=== PATIENT | male | born 1990 | race Caucasian/White ===

== ENCOUNTER 2016-10-26 14:56 | Inpatient (IN) | payer OTHER ==
[2016-10-26 16:31] VITALS: BP 107/65; PULSE 115; TEMP 99.8; BMI 19.5
--- NOTE | 2016-10-26 18:58 | HP ---
Admission ROS [facility] - HPI Allergies/Adverse Reactions: Allergies Allergy/AdvReac Type Severity Reaction Status Date / Time Penicillins Allergy Verified 10/26/16 19:54 - Ebola screening Have you been sick,other than usual withdrawal symptoms: No Patient History - Smoking Cessation Smoking history: Smoker current status UNK Have you smoked in the past 12 months: No Hx Chewing Tobacco Use: No Initiated information on smoking cessation: No - Substances Abused Heroin Route: Injection Frequency: Daily Amount used: 10 bags Age of first use: 25 Date of Last Use: 10/26/16 Cocaine Route: Injection Frequency: Daily Amount used: 1/2 gram Age of first use: 25 Date of Last Use: 10/26/16 Admission Physical Exam [facility] - Vital Signs Vital Signs: Vital Signs - 24 hr 10/26/16 16:09 Temperature 99.8 F H Pulse Rate 115 H Respiratory 18 Rate Blood Pressure 107/65 Screened but not Admitted - Documentation of Visit Screened but not Admitted: Yes Left Prior to Completion of Assessment: No Insurance Authorization Denied: No Patient Does Not Meet Criteria for Admission: No Level of Care Recommended at this Time: ER Evaluation/Care Alternative Treatment/Long-Term Info Provided: No Additional Information/Explanation: 26 YEARS OLD MALE FIRST ADMISSION TO [facility] FOR OPIATE DETOX, RIGHT ELBOW PAIN, SWELL, IMMOBILE, DISTAL COOL, AMBULANCE WAS CALLED,MAY RETURN TO [facility] FOR OPIATE DETOX [facility] Breath Alcohol Content Breath Alcohol Content: 0 Urine Drug Screen - Control Is Test Valid: Yes - Results Drug Screen Negative: No Urine Drug Screen Results: SUNNY-Cocaine, OPI-Opiates, BZO-Benzodiazepines
== END 2016-10-26 23:00 | disposition short-term general hospital (02) | DRG 773 ==
LOC: YASAS 14:56 → Y6N 18:57
PROVIDERS: ADMIT Internal Medicine; ATTEND Internal Medicine
PROC: HZ2ZZZZ Detoxification Services for Substance Abuse Treatment (ICD-10-PCS; principal; 2016-10-26)
DX: F11.23 Opioid dependence with withdrawal (principal); F14.20 Cocaine dependence, uncomplicated; Z88.0 Allergy status to penicillin

== ENCOUNTER 2016-10-26 19:33 | Inpatient (IN) | payer OTHER ==
[2016-10-26] MEDS ORDERED: VANCOMYCIN 1,000 MG in DEXTROSE 5%-WATER - 250 ML IVPB ONE (20:38)
[2016-10-26] MEDS ORDERED: LEVOFLOXACIN 500 MG IVPB 100 ML IVPB ONE ×2 (20:38→21:24)
[2016-10-26] MEDS ORDERED: SODIUM CHLORIDE 1,000 ML IV STA (20:39)
--- NOTE | 2016-10-26 20:40 | PDOC ---
History of Present Illness - General History Source: Patient Exam Limitations: No Limitations - History of Present Illness Initial Comments: The patient is a 26 yo M with a past medical history significant for Cellulitis of L arm s/p IV antibiotics a few months ago who presents with R arm pain s/p illicit drug injection at 11 am. The patient states the pain started a few hours after he injected both heroin and cocaine into his R arm. The patient describes the pain as sharp and throbbing rated 7/10. The patient also notes his buttocks started hurting around the same time as his R arm. The patient denies diaphoresis, nausea, vomiting, diarrhea and abdominal pain. The patient denies chest pain, palpitations and lightheadedness. The patient endorses mild fevers but denies subjective chills. Allergies: penicillin (hives) <Smooth Rider - Last Filed: 10/26/16 20:42> - General History Source: Patient, Old Records Exam Limitations: No Limitations <Néstor Perez - Last Filed: 10/26/16 23:20> - General Chief Complaint: Edema Stated Complaint: Edema Time Seen by Provider: 10/26/16 20:08 Past History <Smooth Rider - Last Filed: 10/26/16 20:42> - Past Medical History Asthma: No Cardiac Disorders: No COPD: No Diabetes: No GI Disorders: No Disorders: No HTN: No Kidney Stones: No Suicide Attempt (Hx): No Seizures: No Other medical history: Pt denies - Surgical History Abdominal Surgery: No Appendectomy: No Cardiac Surgery: No Cholecystectomy: No Lung Surgery: No Neurologic Surgery: No Orthopedic Surgery: No - Reproductive History Testicular Surgery: No - Psycho/Social/Smoking Cessation Hx Anxiety: No Suicidal Ideation: No Smoking History: Unknown if ever smoked Have you smoked in the past 12 months: No Information on smoking cessation initiated: No Hx Alcohol Use: No Drug/Substance Use Hx: Yes (heroine) Substance Use Type: None Hx Substance Use Treatment: No <Néstor Perez - Last Filed: 10/26/16 23:20> - Past Medical History Allergies/Adverse Reactions: Allergies Allergy/AdvReac Type Severity Reaction Status Date / Time Penicillins Allergy Verified 10/26/16 19:54 Home Medications: Ambulatory Orders NK [No Known Home Medication] 10/26/16 Review of Systems - Review of Systems Able to Perform ROS?: Yes Comments:: GENERAL/CONSTITUTIONAL: +fever No chills. No weakness. HEAD, EYES, EARS, NOSE AND THROAT: No change in vision. No ear pain or discharge. No sore throat. CARDIOVASCULAR: No chest pain or shortness of breath. RESPIRATORY: No cough, wheezing, or hemoptysis. GASTROINTESTINAL: No nausea, vomiting, diarrhea or constipation. GENITOURINARY: No dysuria, frequency, or change in urination. MUSCULOSKELETAL: No neck or back pain. SKIN: +RUE redness and pain. +Buttocks redness and pain. NEUROLOGIC: No headache, vertigo, loss of consciousness, or change in strength/ sensation. ALLERGIC/IMMUNOLOGIC: No hives or skin allergy. <Smooth Rider - Last Filed: 10/26/16 20:42> *Physical Exam - Vital Signs Last Vital Signs Temp Pulse Resp BP Pulse Ox 98.4 F 111 H 18 157/70 99 10/26/16 19:55 10/26/16 19:55 10/26/16 19:55 10/26/16 19:55 10/26/16 19:55 - Physical Exam Comments: GENERAL: Awake, alert, and fully oriented, in no acute distress HEAD: No signs of trauma EYES: PERRLA, EOMI, sclera anicteric, conjunctiva clear ENT: Auricles normal inspection, hearing grossly normal, nares patent, oropharynx clear without exudates. Moist mucosa NECK: Normal ROM, supple, no lymphadenopathy, JVD, or masses LUNGS: Breath sounds equal, clear to auscultation bilaterally. No wheezes, and no crackles HEART: Regular rate and rhythm, normal S1 and S2, no murmurs, rubs or gallops ABDOMEN: Soft, nontender, normoactive bowel sounds. No guarding, no rebound. No masses EXTREMITIES: Normal range of motion, no edema. No clubbing or cyanosis. No cords, erythema, or tenderness NEUROLOGICAL: Cranial nerves II through XII grossly intact. Normal speech, normal gait SKIN: Warm, Dry, normal turgor. Multiple track carroll on UE bilaterally. RUE 6 by 8 cm erythema and indurated rash on flexure of his R elbow. RUE tender to palpation. R superior medial buttocks 6 by 8 erythematous and indurated rash that is tender to palpation. <Smooth Rider - Last Filed: 10/26/16 20:42> - Vital Signs Last Vital Signs Temp Pulse Resp BP Pulse Ox 98.4 F 111 H 18 157/70 99 10/26/16 19:55 10/26/16 19:55 10/26/16 19:55 10/26/16 19:55 10/26/16 19:55 <Néstor Perez - Last Filed: 10/26/16 23:20> Heart Score/ECG Review #1 ECG reviewed & interpreted by me at: 22:20 10/26/16 22:26 NSR 99, incomplete RBBB, QTC 485 msec, no std/laura, TWI V2 <Néstor Perez - Last Filed: 10/26/16 23:20> ED Treatment Course - LABORATORY CBC & Chemistry Diagram: 10/26/16 20:50 10/26/16 20:50 - RADIOLOGY Radiology Studies Ordered: Category Date Time Status CHEST X-RAY PORTABLE* [RAD] Stat Radiology 10/26/16 20:34 Ordered <Néstor Perez - Last Filed: 10/26/16 23:20> Medical Decision Making - Medical Decision Making 10/26/16 21:43 A portion of this note was documented by scribe services under my direction. I have reviewed the details of the note, within reason, and agree with the documentation with the following case summary and management plan written by me. Patient treated in the ED. Nursing notes are reviewed and incorporated into the medical decision-making. Vital signs reviewed. Peripheral IV access obtained by the nurse, laboratory studies are drawn and sent, reviewed and interpreted by myself. Vital Signs Temp Pulse Resp BP Pulse Ox 98.4 F 111 H 18 157/70 99 10/26/16 19:55 10/26/16 19:55 10/26/16 19:55 10/26/16 19:55 10/26/16 19:55 26-year-old male with past medical history of IV drug abuse, prior cellulitis in his left fracture of the elbow from prior injection presents with right elbow cellulitis. The patient last injected heroin and cocaine this morning approximately 11 AM. Went to [address] [place] [address] for detox but patient was referred to the ER for tactile fevers and erythema, cellulitisof the right elbow. He also noticed today that he is developing erythema of the buttocks region as well. Denies chest pain or shortness of breath but endorses tactile fevers. The patient most really has diffuse cellulitis. Also appears less invasive his buttocks. This is potentially concerning for endocarditis though he has no murmur. Adult sepsis protocol initiated including 3 sets of blood cultures. Empiric vancomycin and Levaquin was ordered. Patient should be admitted to the hospital for further evaluation. 10/26/16 23:18 CBC, BMP 10/26/16 20:50 10/26/16 20:50 CMP Sodium 129 mmol/L (136-145) L 10/26/16 20:50 Potassium 3.8 mmol/L (3.5-5.1) 10/26/16 20:50 Chloride 93 mmol/L (98-107) L 10/26/16 20:50 Carbon Dioxide 25 mmol/L (21-32) 10/26/16 20:50 Anion Gap 11 (8-16) 10/26/16 20:50 BUN 16 mg/dL (7-18) 10/26/16 20:50 Creatinine 1.1 mg/dL (0.7-1.3) 10/26/16 20:50 Creat Clearance w eGFR > 60 (>60) 10/26/16 20:50 Random Glucose 104 mg/dL (74-106) 10/26/16 20:50 Lactic Acid 1.9 mmol/L (0.4-2.0) 10/26/16 21:00 Calcium 8.8 mg/dL (8.5-10.1) 10/26/16 20:50 Total Bilirubin 1.1 mg/dL (0.2-1.0) H 10/26/16 20:50 AST 72 U/L (15-37) H 10/26/16 20:50 ALT 53 U/L (12-78) 10/26/16 20:50 Alkaline Phosphatase 97 U/L (45-117) 10/26/16 20:50 Creatine Kinase 1920 IU/L (39-308) H 10/26/16 20:50 Creatine Kinase Index 0.3 % (0.0-5.0) 10/26/16 20:50 CK-MB (CK-2) 6.447 ng/mL (0.5-3.6) H 10/26/16 20:50 Troponin I < 0.02 ng/ml (0.00-0.05) 10/26/16 20:50 Total Protein 9.0 g/dl (6.4-8.2) H 10/26/16 20:50 Albumin 4.6 g/dl (3.4-5.0) 10/26/16 20:50 Chest xray reviewed, pending official radiology read. No infiltrates. [facility]. Case discussed in detail with admitting physician including history, physical exam and ancillary studies. Admitting physician has assumed care for the patient, will follow all pending diagnostics and will complete the evaluation and treatment. <Néstor Perez - Last Filed: 10/26/16 23:20> *DC/Admit/Observation/Transfer - Attestations Scribe Attestion: Documentation prepared by Smooth Ridre, acting as medical librarian for Néstor Perez MD, /DO. <Smooth Rider - Last Filed: 10/26/16 20:42> - Discharge Dispostion Admit: Yes <Néstor Perez - Last Filed: 10/26/16 23:20> Diagnosis at time of Disposition: Cellulitis Qualifiers: Site of cellulitis: other site Qualified Code(s): L03.818 - Cellulitis of other sites - Discharge Dispostion Condition at time of disposition: Stable - Referrals Referrals: Juan Pollock MD [Primary Care Provider] -
[2016-10-26] MEDS ORDERED: VANCOMYCIN 1 GRAM (PRE-DOCKED) 250 ML IVPB ONE (21:24)
[2016-10-26 21:33] LABS: BASOPHIL 0.3 % (0-2.0); MCH 26.9 pg (25.7-33.7); MCHC 33.5 g/dl (32.0-35.9); MEAN CELL VOLUME 80.4 fl (80-96); NEUTROPHILS 80.1 % (42.8-82.8); PLATELET COUNT 163 K/MM3 (134-434); WHITE BLOOD COUNT 6.6 K/mm3 (4.0-10.0)
[2016-10-26 21:48] LABS: INR 1.23 (0.82-1.09); PROTHROMBIN TIME (PATIENT) 13.6 SEC (9.98-11.88)
[2016-10-26 21:51] LABS: ACTIVATED PTT 23.4 SECONDS (26.9-34.4)
[2016-10-26 22:01] LABS: ALBUMIN 4.6 g/dl (3.4-5.0); ANION GAP 11 (8-16); CALCIUM 8.8 mg/dL (8.5-10.1); CO2 25 mmol/L (21-32); CREATININE 1.1 mg/dL (0.7-1.3); GLUCOSE,RANDOM 104 mg/dL (74-106); SGOT/AST 72 U/L (15-37); SGPT/ALT 53 U/L (12-78)
[2016-10-26 22:14] LABS: ALK PHOS 97 U/L (45-117); BILIRUBIN,TOTAL 1.1 mg/dL (0.2-1.0); TROPONIN I < 0.02 ng/ml (0.00-0.05)
[2016-10-26 22:17] LABS: CPK 1920 IU/L (39-308)
[2016-10-26 22:46] LABS: URINE APPEARANCE SLCLOUDY; URINE BILIRUBIN NEGATIVE (NEGATIVE); URINE BLOOD 2+ (NEGATIVE); URINE COLOR YELLOW; URINE GLUCOSE (UA) NEGATIVE (NEGATIVE); URINE KETONE 2+ (NEGATIVE); URINE LEUK ESTERASE NEGATIVE (NEGATIVE); URINE NITRITE NEGATIVE (NEGATIVE); URINE UROBILINOGEN NEGATIVE mg/dL (0.2-1.0)
[2016-10-26 22:55] LABS: URINE MARIJUANA THC NEGATIVE ng/ml (CUTOFF=50)
[2016-10-26 23:22] LABS: URINE PROTEIN 1+ (NEGATIVE)
[2016-10-26 23:23] LABS: URINE MUCUS FEW; URINE RBC <1 /hpf (0-3); URINE WBC 1 /hpf (3-5)
[2016-10-27 00:55] VITALS: BMI 25.9
--- NOTE | 2016-10-27 01:27 | HP ---
CHIEF COMPLAINT: R-arm pain/swelling PCP: HISTORY OF PRESENT ILLNESS: This is a 26 y/o male with a past medical history of IVDU- Heroin, Polysubstance Abuse (Cocaine/Opiates). Who presents to the ED with pain, redness to right antecubital fossa. patient reports using daily Heroin 10 bags and self injecting into his arms. Patient reports being treated for L- Cellulitis and was on abx 3 weeks ago. Patient denies fever, chills, cough, SOB , CP, AP, N/V/D, constipation, dysuria. ER course was notable for: (1) T Max 104.2 (2) Na 129 (3) CK 1920 Recent Travel: None PAST MEDICAL HISTORY: IVDU Polysubstance Abuse PAST SURGICAL HISTORY: Denies Social History: Smoking: Denies Alcohol: Denies Drugs: Heroin/Cocaine/Opiates Family History: Non Contributory Allergies Penicillins Allergy (Verified 10/26/16 19:54) HOME MEDICATIONS: Home Medications Medication Instructions Recorded NK [No Known Home Medication] 10/26/16 REVIEW OF SYSTEMS CONSTITUTIONAL: Absent: fever, chills, diaphoresis, generalized weakness, malaise, loss of appetite, weight change HEENT: Absent: rhinorrhea, nasal congestion, throat pain, throat swelling, difficulty swallowing, mouth swelling, ear pain, eye pain, visual changes CARDIOVASCULAR: Absent: chest pain, syncope, palpitations, irregular heart rate, lightheadedness , peripheral edema RESPIRATORY: Absent: cough, shortness of breath, dyspnea with exertion, orthopnea, wheezing, stridor, hemoptysis GASTROINTESTINAL: Absent: abdominal pain, abdominal distension, nausea, vomiting, diarrhea, constipation, melena, hematochezia GENITOURINARY: Absent: dysuria, frequency, urgency, hesitancy, hematuria, flank pain, genital pain MUSCULOSKELETAL: right arm pain/swelling Absent: myalgia, arthralgia, joint swelling, back pain, neck pain SKIN: erytherma, pus Absent: rash, itching, pallor HEMATOLOGIC/IMMUNOLOGIC: Absent: easy bleeding, easy bruising, lymphadenopathy, frequent infections ENDOCRINE: Absent: unexplained weight gain, unexplained weight loss, heat intolerance, cold intolerance NEUROLOGIC: Absent: headache, focal weakness or paresthesias, dizziness, unsteady gait, seizure, mental status changes, bladder or bowel incontinence PSYCHIATRIC: Absent: anxiety, depression, suicidal or homicidal ideation, hallucinations. PHYSICAL EXAMINATION Vital Signs - 24 hr 10/27/16 10/27/16 00:28 01:00 Temperature 98.3 F 104.2 F H Pulse Rate 102 H Pulse Rate [ 82 Left Radial] Respiratory 20 18 Rate Blood Pressure 120/72 Blood Pressure 130/80 [Left Arm] GENERAL: Thin, awake, alert, and fully oriented, in no acute distress. HEAD: Normal with no signs of trauma. EYES: Pupils equal, round and reactive to light, extraocular movements intact, sclera anicteric, conjunctiva clear. No lid lag. EARS, NOSE, THROAT: Ears normal, nares patent, oropharynx clear without exudates. Dry mucous membranes. NECK: Normal range of motion, supple without lymphadenopathy, JVD, or masses. LUNGS: Breath sounds equal, clear to auscultation bilaterally. No wheezes, and no crackles. No accessory muscle use. HEART: Sinus Tachycardia, normal S1 and S2 without murmur, rub or gallop. ABDOMEN: Soft, nontender, not distended, normoactive bowel sounds, no guarding, no rebound, no masses. No hepatomegaly or splenomegaly. MUSCULOSKELETAL: Normal range of motion at all joints. No bony deformities or tenderness. No CVA tenderness. UPPER EXTREMITIES: 2+ pulses, warm, well-perfused. No cyanosis. No clubbing. No peripheral edema. LOWER EXTREMITIES: 2+ pulses, warm, well-perfused. No calf tenderness. No peripheral edema. NEUROLOGICAL: Cranial nerves II-XII intact. Normal speech. Gait not observed. PSYCHIATRIC: Cooperative. Good eye contact. Appropriate mood and affect. SKIN: Warm, dry, normal turgor, normal capillary refill. +erythematous, indurated, fluctuant abscess to right antecubital fossa- right upper arm/ distal forearm noted Laboratory Results - last 24 hr 10/26/16 10/26/16 10/26/16 20:50 20:50 20:50 WBC 6.6 RBC 5.19 Hgb 14.0 Hct 41.7 MCV 80.4 MCH 26.9 MCHC 33.5 RDW 15.0 Plt Count 163 MPV 7.0 L Neutrophils % 80.1 Lymphocytes % 12.1 Monocytes % 7.5 Eosinophils % 0.0 Basophils % 0.3 INR 1.23 H PTT (Actin FS) 23.4 L Sodium 129 L Potassium 3.8 Chloride 93 L Carbon Dioxide 25 Anion Gap 11 BUN 16 Creatinine 1.1 Creat Clearance w eGFR > 60 Random Glucose 104 Lactic Acid Calcium 8.8 Total Bilirubin 1.1 H AST 72 H ALT 53 Alkaline Phosphatase 97 Creatine Kinase 1920 H Creatine Kinase Index 0.3 CK-MB (CK-2) 6.447 H Troponin I < 0.02 Total Protein 9.0 H Albumin 4.6 Urine Color Urine Appearance Urine pH Urine Protein Urine Glucose (UA) Urine Ketones Urine Blood Urine Nitrite Urine Bilirubin Urine Urobilinogen Ur Leukocyte Esterase Urine RBC Urine WBC Urine Mucus Opiates Screen Methadone Screen Barbiturate Screen Phencyclidine Screen Ur Amphetamines Screen MDMA (Ecstasy) Screen Benzodiazepines Screen Cocaine Screen U Marijuana (THC) Screen Blood Type Antibody Screen 10/26/16 10/26/16 10/26/16 20:50 21:00 22:25 WBC RBC Hgb Hct MCV MCH MCHC RDW Plt Count MPV Neutrophils % Lymphocytes % Monocytes % Eosinophils % Basophils % INR PTT (Actin FS) Sodium Potassium Chloride Carbon Dioxide Anion Gap BUN Creatinine Creat Clearance w eGFR Random Glucose Lactic Acid 1.9 Calcium Total Bilirubin AST ALT Alkaline Phosphatase Creatine Kinase Creatine Kinase Index CK-MB (CK-2) Troponin I Total Protein Albumin Urine Color Yellow Urine Appearance Slcloudy Urine pH 5.0 Urine Protein 1+ H Urine Glucose (UA) Negative Urine Ketones 2+ H Urine Blood 2+ H Urine Nitrite Negative Urine Bilirubin Negative Urine Urobilinogen Negative Ur Leukocyte Esterase Negative Urine RBC <1 Urine WBC 1 Urine Mucus Few Opiates Screen Methadone Screen Barbiturate Screen Phencyclidine Screen Ur Amphetamines Screen MDMA (Ecstasy) Screen Benzodiazepines Screen Cocaine Screen U Marijuana (THC) Screen Blood Type O POSITIVE Antibody Screen Negative 10/26/16 22:25 WBC RBC Hgb Hct MCV MCH MCHC RDW Plt Count MPV Neutrophils % Lymphocytes % Monocytes % Eosinophils % Basophils % INR PTT (Actin FS) Sodium Potassium Chloride Carbon Dioxide Anion Gap BUN Creatinine Creat Clearance w eGFR Random Glucose Lactic Acid Calcium Total Bilirubin AST ALT Alkaline Phosphatase Creatine Kinase Creatine Kinase Index CK-MB (CK-2) Troponin I Total Protein Albumin Urine Color Urine Appearance Urine pH Urine Protein Urine Glucose (UA) Urine Ketones Urine Blood Urine Nitrite Urine Bilirubin Urine Urobilinogen Ur Leukocyte Esterase Urine RBC Urine WBC Urine Mucus Opiates Screen Positive Methadone Screen Negative Barbiturate Screen Negative Phencyclidine Screen Negative Ur Amphetamines Screen Negative MDMA (Ecstasy) Screen Negative Benzodiazepines Screen Positive Cocaine Screen Positive U Marijuana (THC) Screen Negative Blood Type Antibody Screen ASSESSMENT/PLAN: This is a 26 y/o male with a PMHx of IVDU (Heroin), Polysubstance Abuse (Cocaine /Opiates). Admitted for Cellulitis R- Arm for further evaluation of their emergent condition. Problem List - Problem (1) Cellulitis Assessment/Plan: - Likely secondary to IVDU - Blood Cultures-pending - No leukocytosis, LA wnl, likely secondary to recent use of abx for LUE Cellulitis - Vancomycin/Levofloxacin started in the ED - Will continue Vancomycin - Appreciate ID consult - Tylenol prn - Monitor vitals - Repeat CBC, BMP in am - Elevate extremity - Xray r- elbow/humerus today r/o osteomyelitis Code(s): L03.90 - CELLULITIS, UNSPECIFIED Qualifiers: Site of cellulitis: other site Qualified Code(s): L03.818 - Cellulitis of other sites (2) Hyponatremia Assessment/Plan: - Likely secondary to Drug Binging vs Dehydration vs SIADH - NS bolus given in ED, patient appears euvolemic - Repeat BMP in am - Urine Osmalarity,Urine sodium - Fluid Restriction 1L Code(s): E87.1 - HYPO-OSMOLALITY AND HYPONATREMIA (3) Endocarditis, suspected Assessment/Plan: - Secondary to IVDU - [place] Criteria- 2 Minor Criteria - Echo in am - Chest Xray reviewed - EKG - Monitor vitals Code(s): Z03.89 - ENCNTR FOR OBS FOR OTH SUSPECTED DISEASES AND COND RULED OUT (4) Heroin abuse Assessment/Plan: - CIWA-Ar Scale 0 - Appreciate Detox Consult - Consider Clonidine Patch for withdrawal - Methadone once approved by Detox Specialist - Will try to avoid Benzos secondary to UTOX results - Monitor vitals - Seizure Precautions Code(s): F11.10 - OPIOID ABUSE, UNCOMPLICATED (5) Cocaine abuse Assessment/Plan: - Counseled Cocaine cessation - Appreciate Detox Consult - No Beta Blockers Code(s): F14.10 - COCAINE ABUSE, UNCOMPLICATED (6) Opiate abuse, continuous Assessment/Plan: - Patient counseled Opiate Cessation - Appreciate Detox Consult - Monitor Vitals Code(s): F11.10 - OPIOID ABUSE, UNCOMPLICATED (7) DVT prophylaxis Assessment/Plan: - OOB - SCDs Code(s): [id number] - Visit type - Emergency Visit Emergency Visit: Yes ED Registration Date: 10/26/16 Care time: The patient presented to the Emergency Department on the above date and was hospitalized for further evaluation of their emergent condition. - New Patient This patient is new to me today: Yes Date on this admission: 10/27/16 - Critical Care Critical Care patient: No
[2016-10-27] MEDS: ACETAMINOPHEN 325 MG TABLET (FP) PO PRN ×3 (01:40→21:35)
[2016-10-27] MEDS ORDERED: DEXTROSE 5%-0.45% SALINE 1,000 ML IV SCH (07:00)
[2016-10-27] MEDS: SODIUM CHLORIDE 1,000 ML IV SCH ×2 (09:41→21:11)
[2016-10-27] MEDS ORDERED: VANCOMYCIN 1,000 MG in DEXTROSE 5%-WATER - 250 ML IVPB SCH (10:00)
--- NOTE | 2016-10-27 10:04 | CONSULT ---
Consult Consult Specialty:: INFECTIOUS DISEASE - History of Present Illness Chief Complaint: Right arm tenderness/erythema History of Present Illness: Asked to evaluate this 26 y.o. male with history of IVDU who presents with c/o Rt arm pain and edema and erythema that began yesterday. He states he had recently injected heroin and cocaine into that arm. He was seen in the ER and noted to have a fever of 104.2F and erythematous Rt arm extending from forearm to upper arm with induration/purulence near anticubital fossa regions. He is currently without any other complaints other than pain 07/18. 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: Alzheimer's, CVA, Dementia, Migraine, Multiple Sclerosis, Peripheral Neuropathy, Parkinson's, Seizure, Syncope, TIA, Vertigo, Other Cardio/Vascular: No: AFIB, Aneurysm, Aortic Insufficiency, Aortic Stenosis, CAD , CHF, Deep Vein Thrombosis, HTN, Hyperlipdemia, RI, Mitral Insufficiency, Mitral Stenosis, Murmur, Pulmonary Hypertension, Other Pulmonary: No: Asthma, Bronchitis, Cancer, COPD, O2 Dependent, Pneumonia, Previously Intubated, Pulmonary Embolus, Pulmonary Fibrosis, Sleep Apnea, Other Gastrointestinal: No: Ascites, Cancer, Constipation, Crohn's Disease, Diverticulitis, Diverticulosis, Esophageal Varices, Gastritis, GERD, GI Bleed, Hemorrhoids, Hiatal Hernia, Inflamatory Bowel Disease, Irritable Bowel Disease, Pancreatitis, Peptic Ulcer Disease, Ulcerative Colitis, Other Hepatobiliary: No: Cirrhosis, Cholelithiasis, Cholecystitis, Choledocholithiasis , Hepatitis A, Hepatitis B, Hepatitis C, Other Renal/: No: Renal Failure, Renal Inusuff, BPH, Cancer, Hematuria, Hemodialysis , Neurogenic Bladder, Renal Calculi, UTI, Other Heme/Onc: No: Anemia, B12 Deficiency, Bleeding Disorder, Cancer, Current Chemotherapy, Current Radiation Therapy, Hemochromatosis, Hypercoaguable State, Myeloproliferative Synd, Sickle Cell Disease, Sickle Cell Trait, Thrombocytopenia, Other Infectious Disease: Yes: Other (Left arm cellulitis ) Psych: No: Addictions, Anxiety, Bipolar, Depression, Panic, Psychosis, Schizophrenia, Other Musculoskeletal: No: Bursitis, Chronic low back pain, Hemiparesis, Hemiplegia, Osteoarthritis, Paraplegia, Other Rheumatology: No: Fibromyalgia, Gout, Lupus, Rheumatoid Arthritis, Sarcoidosis, Vasculitis, Other ENT: No: Allergic Rhinitis, Sinusitis, Other Endocrine: No: [place]'s Disease, [place]'s Disease, Diabetes Insipidus, Diabetes Mellitus, Hyperparathyroidism, Hyperthyroidism, Hypothyroidism, Osteopenia, SIADH, Other Dermatology: Yes: Cellulitis (Lt arm ) - Past Surgical History Past Surgical History: No: None, AAA Repair, AICD, Amputation, Appendectomy, Arthrosocopy, AV Fistula/Graft, Bariatric Surgery, Breast Biopsy, Bypass, CABG, Carotid Endarterectomy, Cataract Removal, Cholecystectomy, Colectomy, Colonoscopy, Colostomy, Craniotomy, , Cystectomy, Hernia Repair, Hysterectomy, Ileal Conduit, Ileosotomy, Joint Replacement, Kidney Transplant, Laminectomy, Liver Transplant, Mastectomy, Nephrectomy, Oopherectomy, Orchiectomy, Permanent Pacemaker, Prostatectomy, Splenectomy, Stent, Thoracotomy , TURP, Tonsillectomy, Tubal Ligation, Upper Endoscopy, Valve Replacement, Vasectomy, Vein Stripping/Ligation - Alcohol/Substance Use Hx Alcohol Use: No History of Substance Use: reports: Cocaine, Heroin - Smoking History Smoking history: Never smoked Have you smoked in the past 12 months: No - Social History Usual Living Arrangement: With Parent History of Recent Travel: No Home Medications - Allergies Allergies/Adverse Reactions: Allergies Allergy/AdvReac Type Severity Reaction Status Date / Time Penicillins Allergy Verified 10/26/16 19:54 - Home Medications Home Medications: Ambulatory Orders NK [No Known Home Medication] 10/26/16 Family Disease History - Family Disease History Family History: Denies Review of Systems - Review of Systems Constitutional: reports: Fever Eyes: reports: No Symptoms HENT: reports: No Symptoms Neck: reports: No Symptoms Cardiovascular: reports: No Symptoms Respiratory: reports: No Symptoms Gastrointestinal: reports: No Symptoms Genitourinary: reports: No Symptoms Musculoskeletal: reports: No Symptoms Integumentary: reports: Erythema (RUE), Other (RUE edema) Neurological: reports: No Symptoms Endocrine: reports: No Symptoms Hematology/Lymphatic: reports: No Symptoms Psychiatric: reports: No Symptoms Pain Intensity: 5 Physical Exam Vital Signs: Vital Signs Temperature 102.6 F H 10/27/16 08:54 Pulse Rate 120 H 10/27/16 08:54 Respiratory Rate 16 10/27/16 08:54 Blood Pressure 104/58 10/27/16 08:54 O2 Sat by Pulse Oximetry (%) 96 10/27/16 00:02 Constitutional: Yes: No Distress Eyes: Yes: WNL HENT: Yes: WNL Neck: Yes: WNL Cardiovascular: Yes: WNL, Regular Rate and Rhythm Respiratory: Yes: WNL, CTA Bilaterally Gastrointestinal: Yes: Normal Bowel Sounds, Soft Renal/: Yes: WNL Extremities: Yes: Erythema, Other (Rt arm tenderness, Induration with central scab right below Rt anticubital fossa) Edema: Yes Edema: RUE: 2+ Peripheral Pulses WNL: Yes Integumentary: Yes: Erythema Imaging - Results Chest X-ray: Report Reviewed Problem List - Problems (1) Cellulitis Code(s): L03.90 - CELLULITIS, UNSPECIFIED Qualifiers: Site of cellulitis: extremity Site of cellulitis of extremity: upper extremity Laterality: right Qualified Code(s): L03.113 - Cellulitis of right upper limb (2) Cocaine abuse Code(s): F14.10 - COCAINE ABUSE, UNCOMPLICATED (3) Heroin abuse Code(s): F11.10 - OPIOID ABUSE, UNCOMPLICATED Assessment/Plan Continue Vancomycin IV , trough level prior to 4th dose 2D echocardiogram follow up blood culture results monitor CK results Xray of elbow monitor vitals Labs Lab Results: CBC, BMP 10/26/16 20:50 10/26/16 20:50 Abnormal Lab Results 10/26/16 10/26/16 10/26/16 20:50 20:50 20:50 MPV 7.0 L INR 1.23 H PTT (Actin FS) 23.4 L Sodium 129 L Chloride 93 L Total Bilirubin 1.1 H AST 72 H Creatine Kinase 1920 H CK-MB (CK-2) 6.447 H Total Protein 9.0 H Urine Protein Urine Ketones Urine Blood 10/26/16 22:25 MPV INR PTT (Actin FS) Sodium Chloride Total Bilirubin AST Creatine Kinase CK-MB (CK-2) Total Protein Urine Protein 1+ H Urine Ketones 2+ H Urine Blood 2+ H Laboratory Tests 10/26/16 10/26/16 10/26/16 20:50 20:50 20:50 WBC 6.6 RBC 5.19 Hgb 14.0 Hct 41.7 MCV 80.4 MCH 26.9 MCHC 33.5 RDW 15.0 Plt Count 163 MPV 7.0 L Neutrophils % 80.1 Lymphocytes % 12.1 Monocytes % 7.5 Eosinophils % 0.0 Basophils % 0.3 INR 1.23 H PTT (Actin FS) 23.4 L Sodium 129 L Potassium 3.8 Chloride 93 L Carbon Dioxide 25 Anion Gap 11 BUN 16 Creatinine 1.1 Creat Clearance w eGFR > 60 Random Glucose 104 Lactic Acid Calcium 8.8 Total Bilirubin 1.1 H AST 72 H ALT 53 Alkaline Phosphatase 97 Creatine Kinase 1920 H Creatine Kinase Index 0.3 CK-MB (CK-2) 6.447 H Troponin I < 0.02 Total Protein 9.0 H Albumin 4.6 Urine Color Urine Appearance Urine pH Ur Specific [place] Urine Protein Urine Glucose (UA) Urine Ketones Urine Blood Urine Nitrite Urine Bilirubin Urine Urobilinogen Ur Leukocyte Esterase Urine RBC Urine WBC Urine Mucus Opiates Screen Methadone Screen Barbiturate Screen Phencyclidine Screen Ur Amphetamines Screen MDMA (Ecstasy) Screen Benzodiazepines Screen Cocaine Screen U Marijuana (THC) Screen Blood Type Antibody Screen 10/26/16 10/26/16 10/26/16 20:50 21:00 22:25 WBC RBC Hgb Hct MCV MCH MCHC RDW Plt Count MPV Neutrophils % Lymphocytes % Monocytes % Eosinophils % Basophils % INR PTT (Actin FS) Sodium Potassium Chloride Carbon Dioxide Anion Gap BUN Creatinine Creat Clearance w eGFR Random Glucose Lactic Acid 1.9 Calcium Total Bilirubin AST ALT Alkaline Phosphatase Creatine Kinase Creatine Kinase Index CK-MB (CK-2) Troponin I Total Protein Albumin Urine Color Yellow Urine Appearance Slcloudy Urine pH 5.0 Ur Specific [place] 1.025 Urine Protein 1+ H Urine Glucose (UA) Negative Urine Ketones 2+ H Urine Blood 2+ H Urine Nitrite Negative Urine Bilirubin Negative Urine Urobilinogen Negative Ur Leukocyte Esterase Negative Urine RBC <1 Urine WBC 1 Urine Mucus Few Opiates Screen Methadone Screen Barbiturate Screen Phencyclidine Screen Ur Amphetamines Screen MDMA (Ecstasy) Screen Benzodiazepines Screen Cocaine Screen U Marijuana (THC) Screen Blood Type O POSITIVE Antibody Screen Negative 10/26/16 22:25 WBC RBC Hgb Hct MCV MCH MCHC RDW Plt Count MPV Neutrophils % Lymphocytes % Monocytes % Eosinophils % Basophils % INR PTT (Actin FS) Sodium Potassium Chloride Carbon Dioxide Anion Gap BUN Creatinine Creat Clearance w eGFR Random Glucose Lactic Acid Calcium Total Bilirubin AST ALT Alkaline Phosphatase Creatine Kinase Creatine Kinase Index CK-MB (CK-2) Troponin I Total Protein Albumin Urine Color Urine Appearance Urine pH Ur Specific [place] Urine Protein Urine Glucose (UA) Urine Ketones Urine Blood Urine Nitrite Urine Bilirubin Urine Urobilinogen Ur Leukocyte Esterase Urine RBC Urine WBC Urine Mucus Opiates Screen Positive Methadone Screen Negative Barbiturate Screen Negative Phencyclidine Screen Negative Ur Amphetamines Screen Negative MDMA (Ecstasy) Screen Negative Benzodiazepines Screen Positive Cocaine Screen Positive U Marijuana (THC) Screen Negative Blood Type Antibody Screen
[2016-10-27 11:53] LABS: ALBUMIN 3.3 g/dl (3.4-5.0); ANION GAP 8 (8-16); BILIRUBIN,TOTAL 0.9 mg/dL (0.2-1.0); CALCIUM 8.3 mg/dL (8.5-10.1); CO2 26 mmol/L (21-32); CREATININE 0.8 mg/dL (0.7-1.3); GLUCOSE,RANDOM 99 mg/dL (74-106); SGOT/AST 45 U/L (15-37); SGPT/ALT 38 U/L (12-78); TOT PROT 6.6 g/dl (6.4-8.2)
[2016-10-27 11:54] LABS: ALK PHOS 72 U/L (45-117)
[2016-10-27 12:11] LABS: CPK 1034 IU/L (39-308); TROPONIN I < 0.02 ng/ml (0.00-0.05)
[2016-10-27] MEDS: VANCOMYCIN 1 GRAM (PRE-DOCKED) 1,000 MG/250 ML BAG IVPB SCH (17:07)
--- NOTE | 2016-10-27 17:19 | HOSP ---
Subjective - Review of Symptoms Subjective: pt seen and examined. Dileep fever, chills, vomiting. He says he cant quit cold turkey Physical Examination Vital Signs: Vital Signs Temperature 98.2 F 10/27/16 14:52 Pulse Rate 133 H 10/27/16 14:52 Respiratory Rate 18 10/27/16 14:52 Blood Pressure 103/68 10/27/16 14:52 O2 Sat by Pulse Oximetry (%) 100 10/27/16 09:00 Constitutional: Yes: Other (tearful) Eyes: Yes: Conjunctiva Clear Neck: Yes: Supple Cardiovascular: Yes: Regular Rate and Rhythm, Tachycardia Respiratory: Yes: Regular, CTA Bilaterally Gastrointestinal: Yes: Normal Bowel Sounds, Soft Extremities: Yes: Erythema (RUE) Edema: No Peripheral Pulses WNL: Yes Integumentary: Yes: Other (RUE forearm erythema, forearm area of induration and tenderness) Neurological: Yes: Alert, Oriented, Cran Nerves II-XII Intact Psychiatric: Yes: Alert, Oriented Labs: CBC, BMP 10/27/16 11:00 Hospitalist Encounter Assessment: Assessment: 26 year old male IVDU admitted with RUE edema, pain, fever. Plan: 1. RUE cellulitis - Vanco q12 - ECHO ordered - Tylenol - Blood cx pending 2. IVDU - Latest using 10bags of heroine - Refusing rehab - Will start methadone taper 3. Mild Rhabdo - Continue IVF 83cc/hr - Trend CPK 4. Hyponatremia - Improving, s/p 1L in ED - Fluids as above - No signs of seizure, altered mental status
[2016-10-27] MEDS ORDERED: diazePAM 5 MG TABLET PO ONE (17:23)
[2016-10-27] MEDS ORDERED: diazePAM 5 MG TABLET PO PRN (17:24)
[2016-10-27] MEDS: diazePAM 5 MG TABLET PO SCH ×2 (18:11→21:11)
[2016-10-27] MEDS ORDERED: METHADONE HCL 10 MG TABLET (FOR DETOX USE ONLY) PO SCH ×2 (18:15)
[2016-10-27] MEDS: METHADONE HCL 10 MG TABLET (FOR DETOX USE ONLY) PO SCH ×2 (18:20→18:25)
[2016-10-27] MEDS ORDERED: METHADONE HCL 10 MG TABLET PO SCH (18:30)
--- NOTE | 2016-10-27 18:38 | EKG ---
Test Reason : Blood Pressure : / mmHG Vent. Rate : 099 BPM Atrial Rate : 099 BPM P-R Int : 134 ms QRS Dur : 096 ms QT Int : 378 ms P-R-T Axes : 067 080 064 degrees QTc Int : 485 ms NORMAL SINUS RHYTHM INCOMPLETE RIGHT BUNDLE BRANCH BLOCK PROLONGED QT ABNORMAL ECG NO PREVIOUS ECGS AVAILABLE Confirmed by DINO RUBIO MD ([id number]) on 10/27/2016 6:38:45 PM Referred By: Confirmed By:DINO RUBIO MD
[2016-10-28] MEDS: ACETAMINOPHEN 325 MG TABLET (FP) PO PRN ×2 (02:15→18:37)
[2016-10-28] MEDS: VANCOMYCIN 1 GRAM (PRE-DOCKED) 1,000 MG/250 ML BAG IVPB SCH ×2 (05:07→17:19)
[2016-10-28] MEDS: diazePAM 5 MG TABLET PO SCH ×4 (05:07→22:36)
[2016-10-28] MEDS ORDERED: ONDANSETRON 4 MG/2 ML VIAL IVPB ONE (05:27)
[2016-10-28] MEDS ORDERED: PROCHLORPERAZINE INJECTION 10 MG/2 ML VIAL IVPB PRN (07:46)
[2016-10-28] MEDS ORDERED: METOCLOPRAMIDE HCL INJECTION 10 MG/2 ML VIAL IVPUSH ONE (07:53)
[2016-10-28 08:54] LABS: BASOPHIL 0.2 % (0-2.0); EOSINOPHIL 0.1 % (0-4.5); MCH 27.7 pg (25.7-33.7); MCHC 35.3 g/dl (32.0-35.9); MEAN CELL VOLUME 78.5 fl (80-96); MEAN PLT VOLUME 7.3 fl (7.5-11.1); NEUTROPHILS 79.5 % (42.8-82.8); PLATELET COUNT 141 K/MM3 (134-434); RDW 15.1 % (11.9-15.9); WHITE BLOOD COUNT 9.3 K/mm3 (4.0-10.0)
[2016-10-28] MEDS: METHADONE HCL 5 MG TABLET PO SCH (09:01)
[2016-10-28 09:17] LABS: ANION GAP 10 (8-16); CALCIUM 7.7 mg/dL (8.5-10.1); CO2 23 mmol/L (21-32); CREATININE 0.6 mg/dL (0.7-1.3); GLUCOSE,RANDOM 114 mg/dL (74-106)
[2016-10-28] MEDS ORDERED: METOCLOPRAMIDE HCL INJECTION 10 MG/2 ML VIAL IVPUSH PRN (09:19)
[2016-10-28] MEDS: SODIUM CHLORIDE 1,000 ML IV SCH ×2 (10:29→16:33)
--- NOTE | 2016-10-28 11:56 | PN ---
Progress Note, Physician History of Present Illness: Pt states he feels better than yesterday. Still with pain in RUE , Rt buttock erythema/induration/pain. Had episodes of vomiting last night but no current nausea. - Current Medication List Current Medications: Active Medications Acetaminophen (Tylenol -) 650 mg PO Q6H PRN PRN Reason: FEVER OR PAIN Last Admin: 10/28/16 02:15 Dose: 650 mg Diazepam (Valium -) 10 mg PO Q4H PRN PRN Reason: WITHDRAWAL(CONT SUBST) Stop: 10/30/16 17:23 Diazepam (Valium -) 5 mg PO TID [facility] Stop: 10/28/16 22:01 Last Admin: 10/28/16 05:07 Dose: 5 mg Diazepam (Valium -) 5 mg PO BID [facility] Stop: 10/30/16 10:01 Diazepam (Valium -) 5 mg PO DAILY [facility] Stop: 10/30/16 10:02 Diphenhydramine HCl (Benadryl Injection -) 25 mg IVPB Q6H PRN PRN Reason: NAUSEA Sodium Chloride (Normal Saline -) 1,000 mls @ 100 mls/hr IV ASDIR [facility] Last Admin: 10/28/16 10:29 Dose: 100 mls/hr Methadone HCl (Dolophine -) 10 mg PO DAILY [facility] Stop: 10/29/16 10:01 Methadone HCl (Dolophine -) 15 mg PO DAILY [facility] Stop: 10/29/16 10:01 Last Admin: 10/28/16 09:01 Dose: 15 mg Methadone HCl (Dolophine -) 5 mg PO DAILY@0600 [facility] Stop: 10/30/16 06:01 Metoclopramide HCl (Reglan Injection -) 10 mg IVPUSH Q6H PRN PRN Reason: NAUSEA AND/OR VOMITING Vancomycin HCl (Vancomycin (Pre-Docked)) 1,000 mg IVPB Q12H [facility] Last Admin: 10/28/16 05:07 Dose: 1,000 mg - Objective Vital Signs: Vital Signs Temperature 99.4 F 10/28/16 06:34 Pulse Rate 94 H 10/28/16 06:34 Respiratory Rate 19 10/28/16 06:34 Blood Pressure 111/63 10/28/16 06:34 O2 Sat by Pulse Oximetry (%) 98 10/27/16 19:53 Constitutional: Yes: No Distress Eyes: Yes: Conjunctiva Clear HENT: Yes: Atraumatic Neck: Yes: Supple Cardiovascular: Yes: Regular Rate and Rhythm Respiratory: Yes: CTA Bilaterally Gastrointestinal: Yes: Normal Bowel Sounds, Soft, Vomiting (no nausea or vomiting today) Genitourinary: Yes: WNL Musculoskeletal: Yes: WNL Extremities: Yes: Erythema (RUE ext with less erythema today) Integumentary: Yes: Erythema (Rt buttock induration with erythema/mild tenderness), Tattoos Psychiatric: Yes: Alert, Oriented Labs: CBC, BMP 10/28/16 07:35 10/28/16 07:35 INR, PTT INR 1.23 (0.82-1.09) H 10/26/16 20:50 Microbiology 10/26/16 22:25 Urine - Urine Clean Catch Urine Culture - Final NO GROWTH OBTAINED 10/26/16 20:50 Blood - Peripheral Venous Blood Culture - Preliminary NO GROWTH OBTAINED AFTER 24 HOURS, INCUBATION TO CONTINUE FOR 4 DAYS. 10/26/16 20:50 Blood - Peripheral Venous Blood Culture - Preliminary NO GROWTH OBTAINED AFTER 24 HOURS, INCUBATION TO CONTINUE FOR 4 DAYS. 10/26/16 20:50 Blood - Peripheral Venous Blood Culture - Preliminary NO GROWTH OBTAINED AFTER 24 HOURS, INCUBATION TO CONTINUE FOR 4 DAYS. Laboratory Results - last 24 hr 10/27/16 10/27/16 10/27/16 08:39 11:00 11:00 WBC RBC Hgb Hct MCV MCH MCHC RDW Plt Count MPV Neutrophils % Lymphocytes % Monocytes % Eosinophils % Basophils % Sodium 135 L Potassium 3.8 Chloride 101 Carbon Dioxide 26 Anion Gap 8 BUN 13 Creatinine 0.8 D Creat Clearance w eGFR > 60 Random Glucose 99 Calcium 8.3 L Total Bilirubin 0.9 AST 45 H D ALT 38 D Alkaline Phosphatase 72 D Creatine Kinase 1034 H Creatine Kinase Index 0.1 CK-MB (CK-2) 1.863 Troponin I < 0.02 Total Protein 6.6 D Albumin 3.3 L D Urine Osmolality 349 10/28/16 10/28/16 07:35 07:35 WBC 9.3 D RBC 4.04 D Hgb 11.2 L D Hct 31.7 L D MCV 78.5 L MCH 27.7 MCHC 35.3 RDW 15.1 Plt Count 141 MPV 7.3 L Neutrophils % 79.5 Lymphocytes % 10.4 Monocytes % 9.8 Eosinophils % 0.1 D Basophils % 0.2 Sodium 134 L Potassium 3.3 L Chloride 101 Carbon Dioxide 23 Anion Gap 10 BUN 10 D Creatinine 0.6 L D Creat Clearance w eGFR Random Glucose 114 H Calcium 7.7 L Total Bilirubin AST ALT Alkaline Phosphatase Creatine Kinase Creatine Kinase Index CK-MB (CK-2) Troponin I Total Protein Albumin Urine Osmolality Problem List - Problems (1) Cellulitis Code(s): L03.90 - CELLULITIS, UNSPECIFIED Qualifiers: Site of cellulitis: extremity Site of cellulitis of extremity: upper extremity Laterality: right Qualified Code(s): L03.113 - Cellulitis of right upper limb (2) Cocaine abuse Code(s): F14.10 - COCAINE ABUSE, UNCOMPLICATED (3) Heroin abuse Code(s): F11.10 - OPIOID ABUSE, UNCOMPLICATED (4) Fever Code(s): R50.9 - FEVER, UNSPECIFIED (5) Cellulitis and abscess of buttock Code(s): L02.31 - CUTANEOUS ABSCESS OF BUTTOCK L03.317 - CELLULITIS OF BUTTOCK Assessment/Plan IVDU RUE cellulitis/abscess - improving Rt Buttock cellulitis Fever resolved, wbc normal CK lower but remains elevated - continue Vancomycin - Echocardiogram ordered - continue monitor
[2016-10-28] MEDS ORDERED: POTASSIUM CHLORIDE ORAL LIQUID 20 MEQ/15 ML PO ONE (14:45)
--- NOTE | 2016-10-28 14:51 | PN ---
Physical Exam: SUBJECTIVE: Patient seen and examined. He is having withdrawal symptoms, vomited. Has right buttock pain. Events: - low grade fever tmx 102 OBJECTIVE: Vital Signs Period Temp Pulse Resp BP Sys/Ng Pulse Ox Last 24 Hr 98.2 F-102.0 F 75-133 18-20 103-127/63-69 98 PE Neuro: alert, awake, cn 2-12intact Pulm: CTAB CV: s1 s2 rrr no mrg Abd: s nt nd +bs : R buttock area of erythema Ext: RUE erythema + tenderness, swelling Laboratory Results - last 24 hr 10/28/16 10/28/16 07:35 07:35 WBC 9.3 D RBC 4.04 D Hgb 11.2 L D Hct 31.7 L D MCV 78.5 L MCH 27.7 MCHC 35.3 RDW 15.1 Plt Count 141 MPV 7.3 L Neutrophils % 79.5 Lymphocytes % 10.4 Monocytes % 9.8 Eosinophils % 0.1 D Basophils % 0.2 Sodium 134 L Potassium 3.3 L Chloride 101 Carbon Dioxide 23 Anion Gap 10 BUN 10 D Creatinine 0.6 L D Random Glucose 114 H Calcium 7.7 L Active Medications Generic Name Dose Route Start Last Admin Trade Name Freq PRN Reason Stop Dose Admin Acetaminophen 650 mg 10/27/16 01:34 10/28/16 02:15 Tylenol - PO 650 mg Q6H PRN Administration FEVER OR PAIN Diazepam 10 mg 10/27/16 17:24 Valium - PO 10/30/16 17:23 Q4H PRN WITHDRAWAL(CONT SUBST) Diazepam 5 mg 10/27/16 17:32 10/28/16 14:03 Valium - PO 10/28/16 22:01 5 mg TID BRENNAN Administration Diazepam 5 mg 10/28/16 22:01 Valium - PO 10/30/16 10:01 BID BRENNAN Diazepam 5 mg 10/30/16 10:01 Valium - PO 10/30/16 10:02 DAILY BRENNAN Diphenhydramine HCl 25 mg 10/28/16 09:19 Benadryl Injection - IVPB Q6H PRN NAUSEA Sodium Chloride 1,000 mls @ 100 mls/hr 10/28/16 09:19 10/28/16 10:29 Normal Saline - IV 100 mls/hr ASDIR BRENNAN Administration Methadone HCl 10 mg 10/29/16 10:00 Dolophine - PO 10/29/16 10:01 DAILY BRENNAN Methadone HCl 15 mg 10/28/16 10:00 10/28/16 09:01 Dolophine - PO 10/29/16 10:01 15 mg DAILY BRENNAN Administration Methadone HCl 5 mg 10/30/16 06:00 Dolophine - PO 10/30/16 06:01 DAILY@0600 [facility] Metoclopramide HCl 10 mg 10/28/16 09:19 Reglan Injection - IVPUSH Q6H PRN NAUSEA AND/OR VOMITING Potassium Chloride 40 meq 10/28/16 14:45 Potassium Chloride Oral Liquid PO 10/28/16 14:46 ONCE ONE Vancomycin HCl 1,000 mg 10/27/16 16:45 10/28/16 05:07 Vancomycin (Pre-Docked) IVPB 1,000 mg Q12H BRENNAN Administration Microbiology 10/26/16 22:25 Urine Culture - Final Urine - Urine Clean Catch NO GROWTH OBTAINED 10/26/16 20:50 Blood Culture - Preliminary Blood - Peripheral Venous NO GROWTH OBTAINED AFTER 24 HOURS, INCUBATION TO CONTINUE FOR 4 DAYS. 10/26/16 20:50 Blood Culture - Preliminary Blood - Peripheral Venous NO GROWTH OBTAINED AFTER 24 HOURS, INCUBATION TO CONTINUE FOR 4 DAYS. 10/26/16 20:50 Blood Culture - Preliminary Blood - Peripheral Venous NO GROWTH OBTAINED AFTER 24 HOURS, INCUBATION TO CONTINUE FOR 4 DAYS. Assessment: 26 year old male IVDU admitted with RUE edema, pain, fever. Plan: 1. RUE cellulitis/R buttock cellulitis - Febrile - Vanco q12 - Check trough in AM - ECHO tomorrow - Tylenol prn - Blood and urine cx NGTD 2. IVDU - Latest using 10bags of heroine - Continue methadone taper with valium 3. Nausea/withdrawal sx - Reglan with benadryl prn q8 4. Mild Rhabdo - Increase IVF 100cc/hr - AM CPK 4. Hyponatremia - Improving - Continue to monitor Visit type - Emergency Visit Emergency Visit: Yes ED Registration Date: 10/26/16 Care time: The patient presented to the Emergency Department on the above date and was hospitalized for further evaluation of their emergent condition. - New Patient This patient is new to me today: Yes Date on this admission: 10/28/16 - Critical Care Critical Care patient: No - Discharge Referral Referred to [facility] No
[2016-10-28] MEDS ORDERED: PT OWN MED DRAWER 7, Y5N ONE (17:12)
[2016-10-29] MEDS: ACETAMINOPHEN 325 MG TABLET (FP) PO PRN (05:51)
[2016-10-29] MEDS: VANCOMYCIN 1 GRAM (PRE-DOCKED) 1,000 MG/250 ML BAG IVPB SCH (06:00)
[2016-10-29 08:30] VITALS: BP 108/70; PULSE 91; TEMP 98.8
[2016-10-29] MEDS: diazePAM 5 MG TABLET PO SCH (09:07)
[2016-10-29] MEDS: METHADONE HCL 5 MG TABLET PO SCH (09:07)
[2016-10-29] MEDS ORDERED: METHADONE HCL 10 MG TABLET PO SCH (10:00)
--- NOTE | 2016-10-29 10:30 | DS ---
Physical Exam: SUBJECTIVE: Patient seen and examined. He says the fever is from the blankets and its time for him to go home. Patient wishes to leave AMA. Risks of infection spreading throughout body causing sepsis and impending . OBJECTIVE: Vital Signs Period Temp Pulse Resp BP Sys/Ng Pulse Ox Last 24 Hr 98.8 F-101.9 F 76-95 18-20 94-118/49-70 97-99 PE Neuro: alert, awake, cn 2-12intact Pulm: CTAB CV: s1 s2 rrr no mrg Abd: s nt nd +bs : R buttock area of erythema Ext: RUE erythema + tenderness, swelling Laboratory Results - last 24 hr 10/29/16 04:48 Vancomycin Pre-Dose 5.891 HOSPITAL COURSE: Date of Admission:10/26/16 Date of Discharge: 10/29/16 Minutes to complete discharge: 37 Discharge Summary Reason For Visit: CELLULITIS Current Active Problems Cellulitis (Acute) Cellulitis and abscess of buttock (Acute) Cocaine abuse (Acute) DVT prophylaxis (Acute) Endocarditis, suspected (Acute) Fever (Acute) Heroin abuse (Acute) Hyponatremia (Acute) Opiate abuse, continuous (Acute) Hospital Course: Initial Hospital Course: Briefly, 26 year old male with a past medical history of IVDU- Heroin, Polysubstance Abuse (Cocaine/Opiates) presented with pain, redness to right upper extremity forearm. Patient reports using daily Heroin 10 bags and self injecting into his arms. Patient reported being treated for L- Cellulitis and was on abx 3 weeks ago. Subsequent Hospital Course/Progress Note/Discharge Summary: Assessment: 26 year old male IVDU admitted with RUE edema, pain, fever. Plan: 1. RUE cellulitis/R buttock cellulitis - Febrile this morning - Vanco q12 - Vanco level 5 - ECHO not done pt refusing - Blood and urine cx NGTD 2. IVDU - Latest using 10bags of heroine - Methadone taper, to be completed tomorrow 3. Nausea/withdrawal sx - Resolved - Reglan with benadryl prn q8 4. Mild Rhabdo - AM CPK not done 5. Hyponatremia - Improved Dispo: - Pt wishes to sign out AMA. He is aware of risk with untreated infection can move to heart and blood causing sepsis and respiratory failure and ultimate - He conveys understanding and did not have any other questions. He was told to return to the ER if worsened. - Instructions Diet, Activity, Other Instructions: AMA Referrals: Juan Pollock MD [Primary Care Provider] - Disposition: AGAINST MEDICAL ADVICE - Home Medications Comprehensive Discharge Medication List: Ambulatory Orders NK [No Known Home Medication] 10/26/16 This patient is new to me today: No Emergency Visit: Yes ED Registration Date: 10/26/16 Care time: The patient presented to the Emergency Department on the above date and was hospitalized for further evaluation of their emergent condition. Critical Care patient: No - Discharge Referral Referred to [facility] No
[2016-10-30] MEDS ORDERED: METHADONE HCL 5 MG TABLET PO SCH (06:00)
[2016-10-30] MEDS ORDERED: diazePAM 5 MG TABLET PO SCH (10:01)
== END 2016-10-29 12:17 | disposition left against medical advice (07) | DRG 603 ==
LOC: JER 19:33 → JERBED 23:20 → UNDOADMIN 10-27 00:02 → J6S 10-27 00:45 → JERBED 10-27 00:45
PROVIDERS: ADMIT Internal Medicine; ATTEND Nurse Practitioner Acute Care
DX: L03.113 Cellulitis of right upper limb (principal); E87.1 Hypo-osmolality and hyponatremia; M62.82 Rhabdomyolysis; L02.31 Cutaneous abscess of buttock; F19.10 Other psychoactive substance abuse, uncomplicated; F14.10 Cocaine abuse, uncomplicated; F11.10 Opioid abuse, uncomplicated; R50.9 Fever, unspecified; R11.0 Nausea; M79.601 Pain in right arm; Z88.0 Allergy status to penicillin
CPT/HCPCS: 36415; 71010-TC; 80048; 80053; 80307; 81003; 81015; 82553; 83605; 83935; 84484; 85025; 85610; 85730; 86850; 86900; 86901; 87040; 87086; 93005; 93010; 99285-25; G0480